=== PATIENT | female | born 1995 | race Two or more races ===

== ENCOUNTER 2022-05-05 11:43 | Outpatient (REF) | payer OTHER, SELFPAY ==
[2022-05-05 12:02] LABS: MANUAL DIFF FLAG NO
[2022-05-05 12:24] LABS: Basophils Percent Auto 0.4 % (0-2); Eosinophils Percent Auto 0.6 % (0-4); Hematocrit 32.5 % (37.0-47.0); Hemoglobin 9.5 g/dl (12.0-16.0); Imm Gran Abs Auto 0.02 X10*3/uL (0.00-0.03); Imm Gran Pct Auto 0.4 % (0.0-0.4); Lymphocytes Absolute Auto 1.1 X10*3/uL (1.2-4.9); Lymphocytes Percent Auto 23.4 % (20-40); Mean Corpuscular HGB Conc 29.2 g/dl (31.0-35.0); Mean Corpuscular Hemoglobin 22.7 pg (27.0-33.0); Mean Corpuscular Volume 77.6 fL (80.0-98.0); Mean Platelet Volume 9.6 fL (9.4-12.3); Monocytes Absolute Auto 0.4 X10*3/uL (0.1-1.2); Monocytes Percent Auto 7.7 % (2-11); Neutrophils Absolute Auto 3.1 x10*3/uL (2.0-8.3); Neutrophils Percent Auto 67.5 % (45-73); Platelet Count 291 X10*3/uL (160-400); Red Blood Count 4.19 X10*6/uL (4.20-5.50); Red Cell Distribution Width 14.7 % (11.0-16.0); White Blood Count 4.7 X10*3/uL (4.8-10.8)
[2022-05-05 12:48] LABS: C Reactive Protein 1.65 mg/dL (< or = 0.50); Estimated Glomerular Filt Rate > 60
[2022-05-05 13:07] LABS: Erythrocyte Sedimentation Rate 27 MM/HR (0-20)
[2022-05-05 18:14] LABS: Creatinine Urine 212.53 mg/dL; Protein/Creatinine Ratio, Ur 0.08 (<0.2); Total Protein Urine Random 16 mg/dL (<12)
== END 2022-05-05 11:44 | disposition home or self-care (01) ==
LOC: HO.LAB 11:43
PROVIDERS: PCP Internal Medicine; Visit Provider Internal Medicine Rheumatology
DX: M32.9 Systemic lupus erythematosus, unspecified (principal)
CPT/HCPCS: 36415; 82565; 84156; 85025; 85652; 86140

== ENCOUNTER 2023-04-27 10:47 | Outpatient (AMB) | payer OTHER, SELFPAY ==
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
[2023-04-27 10:54] VITALS: BP 108/76; PULSE 81; RESP 16; TEMP 36.4; O2SAT 96; BMI 44.1
== END 2023-04-27 11:31 | disposition home or self-care (01) ==
LOC: HO.RHE 10:47
PROVIDERS: PCP Internal Medicine; Visit Provider Internal Medicine Rheumatology
DX: D56.3 Thalassemia minor (principal); M25.579 Pain in unspecified ankle and joints of unspecified foot; G89.29 Other chronic pain; Z79.899 Other long term (current) drug therapy; M32.9 Systemic lupus erythematosus, unspecified
CPT/HCPCS: 99213

== ENCOUNTER → 2023-04-27 10:47 | Outpatient (BNVA) | payer OTHER, SELFPAY | PROVIDERS: PCP Internal Medicine; Visit Provider Internal Medicine Rheumatology ==

== ENCOUNTER 2023-04-27 11:53 | Outpatient (REF) | payer OTHER, SELFPAY ==
[2023-04-27 13:14] LABS: MANUAL DIFF FLAG NO
[2023-04-27 13:38] LABS: Basophils Percent Auto 0.8 % (0-2); Eosinophils Absolute Auto 0.1 X10*3/uL (0.0-0.4); Eosinophils Percent Auto 1.8 % (0-4); Hematocrit 34.9 % (37.0-47.0); Hemoglobin 10.2 g/dl (12.0-16.0); Imm Gran Abs Auto 0.01 X10*3/uL (0.00-0.03); Imm Gran Pct Auto 0.3 % (0.0-0.4); Lymphocytes Absolute Auto 1.3 X10*3/uL (1.2-4.9); Lymphocytes Percent Auto 32.3 % (20-40); Mean Corpuscular HGB Conc 29.2 g/dl (31.0-35.0); Mean Corpuscular Hemoglobin 22.9 pg (27.0-33.0); Mean Corpuscular Volume 78.4 fL (80.0-98.0); Mean Platelet Volume 10.5 fL (9.4-12.3); Monocytes Absolute Auto 0.3 X10*3/uL (0.1-1.2); Monocytes Percent Auto 8.1 % (2-11); Neutrophils Absolute Auto 2.3 x10*3/uL (2.0-8.3); Neutrophils Percent Auto 56.7 % (45-73); Platelet Count 235 X10*3/uL (160-400); Red Blood Count 4.45 X10*6/uL (4.20-5.50); Red Cell Distribution Width 13.5 % (11.0-16.0)
[2023-04-27 13:44] LABS: C Reactive Protein 0.48 mg/dL (< or = 0.50); Iron 46 mcg/dL (30-160); Percent Iron Saturation 14 % (15-50); Total Iron Binding Capacity 337 mcg/dL (228-428); Unsaturated Iron Binding 291 ug/dL
[2023-04-27 14:06] LABS: Creatinine Urine 151.91 mg/dL; Total Protein Urine Random < 7 mg/dL (<12)
[2023-04-27 14:42] LABS: Erythrocyte Sedimentation Rate 16 MM/HR (0-20)
[2023-04-28 20:34] LABS: Anti DNA DS Antibody 1 IU/mL
[2023-04-30 01:43] LABS: Complement C3 157 mg/dL (83-193)
== END 2023-04-27 11:54 | disposition home or self-care (01) ==
LOC: HO.10HDL 11:53
PROVIDERS: Visit Provider Internal Medicine Rheumatology
DX: M32.9 Systemic lupus erythematosus, unspecified (principal); D56.3 Thalassemia minor; D64.9 Anemia, unspecified
CPT/HCPCS: 36415; 82570; 83540; 84156; 85025; 85652; 86140; 86160; 86225

== ENCOUNTER 2023-06-21 15:00 | Outpatient (RCR) | payer MEDICARE, MEDICAID, SELFPAY ==
--- NOTE | 2023-05-24 11:15 | MHC.PT.EP ---
[facility] [place] Office [place] Office [place] Office [address] Fuentes [address] [phone] F: [phone] F: [phone] F: [phone] F: [phone] Physical Therapy Plan of Care Date of Evaluation: 05/24/23 Date of Surgery: Diagnosis: pain in unspecified foot and ankle Assessment: 27 y/o female referred to PT with pain in unspecified joint of foot and ankles, other chronic pain. 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 Examination shows decreased B LE strength, hypermobility in knee and ankles, no TTP, ang impaired gait pattern. REcommend PT 2x/week for 4 weeks to address impairments, implement HEP, and optimize functional mobility. Frequency and Duration: The patient will be seen 2x/week for 4 weeks Short Term Goals: 2 weeks compliant with HEP Intermediate Goals: 4 weeks I with HEP and self management of sx Pt will be able to ascend/ descend stairs in step through pattern with pain < 3/10 Improve LEFS to 35/80 (IR 25/80) Treatment Plan: Modalities to reduce pain, spasms and effusion. Manual therapy to restore motion and function. Therapeutic exercise to improve strength and flexibility. Neuromuscular re-education for posture and balance. Therapeutic activities to return to functional activities of daily living. Electronically signed by: Sayda Clements PT Please sign and return to therapist. Thank you for your referral.
--- NOTE | 2023-08-03 10:35 | MHC.PT.DC ---
[facility] [place] Office [place] Office [place] Office [address] Atif Fuentes [address] [phone] F: [phone] F: [phone] F: [phone] F: [phone] Physical Therapy Discharge Report Diagnosis: pain in unspecified foot and ankle Date of Surgery: Date of Evaluation: 06/21/23 Date of Discharge: 08/03/23 Treatments to Date: 5 Cancellations to Date: 6 No Shows to Date: 0 Discharge Status: Independent with HEP Visit Non-compliance Discharge Summary: Pt with poor compliance with scheduling policy and therefore d/c at this time. At time of last attended visit, pt was I with HEP. Electronically signed by: Sayda Clements PT Please sign and return to therapist. Thank you for your referral.
== END 2023-08-03 10:35 | disposition home or self-care (01) ==
LOC: HO.PT 15:00
PROVIDERS: PCP Internal Medicine; Visit Provider Internal Medicine Rheumatology
DX: M25.571 Pain in right ankle and joints of right foot (principal); G89.29 Other chronic pain
CPT/HCPCS: 97110; 97162

== ENCOUNTER 2023-07-21 14:45 | Outpatient (AMB) | payer MEDICARE, MEDICAID, SELFPAY ==
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
[2023-07-21 14:57] VITALS: BP 100/88; PULSE 72; TEMP 36.5; O2SAT 99; BMI 45.0
== END 2023-07-21 15:40 | disposition home or self-care (01) ==
LOC: HO.RHE 14:45
PROVIDERS: PCP Internal Medicine; Visit Provider Nurse Practitioner Family
DX: M32.9 Systemic lupus erythematosus, unspecified (principal); I73.00 Raynaud's syndrome without gangrene; D56.3 Thalassemia minor; M25.571 Pain in right ankle and joints of right foot; M25.572 Pain in left ankle and joints of left foot; G89.29 Other chronic pain; Z79.899 Other long term (current) drug therapy; R79.0 Abnormal level of blood mineral
CPT/HCPCS: 99215

== ENCOUNTER → 2023-07-21 14:45 | Outpatient (BNVA) | payer MEDICARE, MEDICAID, SELFPAY | PROVIDERS: PCP Internal Medicine; Visit Provider Nurse Practitioner Family | DX: D56.3 Thalassemia minor (principal); M25.571 Pain in right ankle and joints of right foot; M25.572 Pain in left ankle and joints of left foot; M32.9 Systemic lupus erythematosus, unspecified; R79.0 Abnormal level of blood mineral; I73.00 Raynaud's syndrome without gangrene; G89.29 Other chronic pain; Z79.899 Other long term (current) drug therapy | CPT/HCPCS: 99212 ==